=== PATIENT | male | born 1995 | race Caucasian/White ===

== ENCOUNTER 2024-02-21 12:10 | Inpatient (IN) | payer MEDICAID ==
[~2024-02-21] VITALS: Ht 182.9 cm; Wt 46.3 kg
[2024-02-21 21:30] VITALS: BP 95/65; TEMP 98.8; O2SAT 100
[2024-02-22] MEDS ORDERED: Z GUARD REMEDY 4 OZ OINT TP PRN
[2024-02-22] MEDS ORDERED: MAG HYDROX/AL HYDROX/SIMETH 30 ML UDC PO PRN
[2024-02-22] MEDS ORDERED: LEVALBUTEROL HCL NEB 1.25 MG/0.5 ML VIAL.NEB NEB PRN
[2024-02-22] MEDS ORDERED: MAGNESIUM HYDROXIDE 30 ML UDC PO PRN
[2024-02-22] MEDS: VANCOMYCIN 1 GM /D5W 250 ML PB IV ONE (01:34)
[2024-02-22] MEDS: VANCOMYCIN 1 GM in IV NS 0.9% 250 ML IV ONE (01:40)
[2024-02-22 06:30] LABS: BASOPHILS # (AUTO) 0.1 K/uL (0.0-0.2); BASOPHILS % (AUTO) 0.7 % (0.0-2.0); EOSINOPHILS % (AUTO) 0.3 % (0.0-6.0); HEMATOCRIT 32 % (39-51); HEMOGLOBIN 10.6 g/dL (13.5-17.5); LYMPHOCYTES # (AUTO) 1.3 K/uL (0.8-4.8); LYMPHOCYTES % (AUTO) 8.6 % (20.0-44.0); MEAN CORPUSCULAR HEMOGLOBIN 25 PG (26.0-33.0); MEAN CORPUSCULAR HGB CONC 33 g/dl (31.0-36.0); MEAN CORPUSCULAR VOLUME 76 fL (80-96); MONOCYTES # (AUTO) 1.2 K/uL (0.1-1.30); MONOCYTES % (AUTO) 8.1 % (2.0-12.0); NEUTROPHILS # (AUTO) 12.2 K/uL (1.8-8.9); NEUTROPHILS % (AUTO) 82.3 % (43.0-81.0); PLATELET COUNT (AUTO) 576 K/uL (150-450); RED BLOOD CELL COUNT(AUTO) 4.26 MIL/uL (4.5-6.0); RED CELL DISTRIBUTION WIDTH 14.9 % (11.5-15.0); WHITE BLOOD COUNT (AUTO) 14.8 K/uL (4.3-11.0)
[2024-02-22 06:57] LABS: ALBUMIN 1.9 g/dL (3.4-5.0); BILIRUBIN,DIRECT 0.2 mg/dL (0.0-0.2); BILIRUBIN,TOTAL 0.8 mg/dL (0.2-1.0); CREATININE 0.7 mg/dL (0.6-1.3); MAGNESIUM 2.2 mg/dL (1.8-2.4); PHOSPHORUS 3.9 mg/dL (2.5-4.9); POTASSIUM 4.1 mmol/L (3.5-5.1); TOTAL PROTEIN, SERUM 7.3 g/dL (6.4-8.2)
[2024-02-22 07:07] LABS: THYROID STIMULATING HORMONE 4.28 uIU/mL (0.358-3.74)
[2024-02-22] MEDS ORDERED: ALBUTEROL FS 2.5 MG/0.5 ML VIAL.NEB NEB PRN (07:30)
[2024-02-22] MEDS: LEVOTHYROXINE SODIUM 25 MCG TABLET PO SCH (07:51)
[2024-02-22] MEDS: PANTOPRAZOLE 40 MG TABLET.DR PO SCH (07:52)
[2024-02-22] MEDS: ENOXAPARIN SODIUM 40 MG/0.4 ML DISP.SYRIN SQ SCH (07:53)
[2024-02-22 08:00] VITALS: BP 103/74; TEMP 99.3; O2SAT 100
[2024-02-22] MEDS: VANCOMYCIN 1 GM in IV D5W 250 ML IV SCH (09:11)
[2024-02-22] MEDS: LEVOFLOXACIN 500 MG /D5W 100ML 500 MG in PREMIX 1 EA IV SCH (09:43)
[2024-02-22 09:50] LABS: IRON, SERUM 18 ug/dl (50-175); TOTAL IRON BINDING CAPACITY 160 ug/dl (250-450)
[2024-02-22 10:04] LABS: FERRITIN 904 ng/mL (8-388)
[2024-02-22] MEDS ORDERED: METRONIDAZOLE 500MG/ NS 100ML 500 MG in PREMIX 1 EA IV SCH (11:00)
[2024-02-22 16:00] VITALS: BP 119/96; TEMP 100.9; O2SAT 94
[2024-02-22] MEDS: ACETAMINOPHEN 325 MG TABLET PO PRN (16:38)
[2024-02-22 20:00] VITALS: BP 94/96; TEMP 97.7; O2SAT 99
[2024-02-22 20:51] VITALS: BP 94/69; TEMP 97.7; O2SAT 99
[2024-02-23 08:00] VITALS: BP 104/74; TEMP 98.1; O2SAT 93
[2024-02-23 08:10] LABS: CALCIUM, SERUM 8.2 mg/dL (8.5-10.1); CREATININE 0.7 mg/dL (0.6-1.3); POTASSIUM 3.9 mmol/L (3.5-5.1)
[2024-02-23] MEDS: CEFTRIAXONE 1 G in IV D5W 50 ML IV SCH (08:12)
[2024-02-23] MEDS: DOXYCYCLINE HYCLATE (100 MG) 100 MG TABLET PO SCH (08:13)
[2024-02-23] MEDS: VANCOMYCIN 750 MG in IV D5W 250 ML IV SCH (10:44)
[2024-02-23 15:07] LABS: *SPE A/G RATIO 0.5 (0.7-1.7); *SPE ALBUMIN 2.2 g/dL (2.9-4.4); *SPE ALPHA-1-GLOBULIN 0.5 g/dL (0.0-0.4); *SPE ALPHA-2-GLOBULIN 1.3 g/dL (0.4-1.0); *SPE GLOBULIN, TOTAL 4.2 g/dL (2.2-3.9); *SPE M-SPIKE Not Observed g/dL (Not Observed); *SPE PROTEIN TOTAL 6.4 g/dL (6.0-8.5); *SPEGAMMA GLOBULIN 1.5 g/dL (0.4-1.8)
[2024-02-23 16:00] VITALS: BP 92/58; TEMP 98.1; O2SAT 99
[2024-02-23 20:00] VITALS: BP 101/65; TEMP 97.7; O2SAT 100
[2024-02-24 08:00] VITALS: BP 94/58; TEMP 98.5; O2SAT 97
[2024-02-24 09:55] LABS: BASOPHILS # (AUTO) 0.1 K/uL (0.0-0.2); BASOPHILS % (AUTO) 0.7 % (0.0-2.0); EOSINOPHILS % (AUTO) 0.2 % (0.0-6.0); HEMATOCRIT 27 % (39-51); HEMOGLOBIN 8.9 g/dL (13.5-17.5); LYMPHOCYTES % (AUTO) 7.1 % (20.0-44.0); MEAN CORPUSCULAR HEMOGLOBIN 25 PG (26.0-33.0); MEAN CORPUSCULAR HGB CONC 33 g/dl (31.0-36.0); MEAN CORPUSCULAR VOLUME 76 fL (80-96); MONOCYTES % (AUTO) 7.5 % (2.0-12.0); NEUTROPHILS # (AUTO) 11.5 K/uL (1.8-8.9); NEUTROPHILS % (AUTO) 84.5 % (43.0-81.0); PLATELET COUNT (AUTO) 520 K/uL (150-450); RED BLOOD CELL COUNT(AUTO) 3.49 MIL/uL (4.5-6.0); RED CELL DISTRIBUTION WIDTH 15.6 % (11.5-15.0); WHITE BLOOD COUNT (AUTO) 13.6 K/uL (4.3-11.0)
[2024-02-24 10:28] LABS: ALBUMIN 1.8 g/dL (3.4-5.0); BILIRUBIN,TOTAL 0.5 mg/dL (0.2-1.0); C-REACTIVE PROTEIN 12.87 mg/dL (0.0-0.30); CALCIUM, SERUM 8.6 mg/dL (8.5-10.1); CREATININE 0.8 mg/dL (0.6-1.3); MAGNESIUM 2.2 mg/dL (1.8-2.4); PHOSPHORUS 3.9 mg/dL (2.5-4.9); POTASSIUM 3.7 mmol/L (3.5-5.1)
[2024-02-24] MEDS: SOD FERRIC GLUC 125 MG in IV NS 0.9% 100 ML IV SCH (15:23)
[2024-02-24] MEDS: VANCOMYCIN 500 MG in IV D5W 100ml IV SCH (17:37)
[2024-02-24 20:00] VITALS: TEMP 100; O2SAT 100
[2024-02-25 05:30] VITALS: TEMP 99.5
[2024-02-25 06:19] VITALS: TEMP 98.7
[2024-02-25 07:13] LABS: BASOPHILS % (AUTO) 0.3 % (0.0-2.0); EOSINOPHILS % (AUTO) 0.2 % (0.0-6.0); HEMATOCRIT 28 % (39-51); HEMOGLOBIN 9.3 g/dL (13.5-17.5); LYMPHOCYTES # (AUTO) 0.7 K/uL (0.8-4.8); LYMPHOCYTES % (AUTO) 5.3 % (20.0-44.0); MEAN CORPUSCULAR HEMOGLOBIN 25 PG (26.0-33.0); MEAN CORPUSCULAR HGB CONC 33 g/dl (31.0-36.0); MEAN CORPUSCULAR VOLUME 76 fL (80-96); MONOCYTES # (AUTO) 1.1 K/uL (0.1-1.30); MONOCYTES % (AUTO) 8.4 % (2.0-12.0); NEUTROPHILS # (AUTO) 11.4 K/uL (1.8-8.9); NEUTROPHILS % (AUTO) 85.8 % (43.0-81.0); PLATELET COUNT (AUTO) 477 K/uL (150-450); RED BLOOD CELL COUNT(AUTO) 3.71 MIL/uL (4.5-6.0); RED CELL DISTRIBUTION WIDTH 15.2 % (11.5-15.0); WHITE BLOOD COUNT (AUTO) 13.3 K/uL (4.3-11.0)
[2024-02-25 07:27] LABS: ALBUMIN 1.8 g/dL (3.4-5.0); BILIRUBIN,TOTAL 0.5 mg/dL (0.2-1.0); CALCIUM, SERUM 8.4 mg/dL (8.5-10.1); CREATININE 0.8 mg/dL (0.6-1.3); MAGNESIUM 1.9 mg/dL (1.8-2.4); PHOSPHORUS 3.9 mg/dL (2.5-4.9); POTASSIUM 3.6 mmol/L (3.5-5.1); TOTAL PROTEIN, SERUM 7.1 g/dL (6.4-8.2)
[2024-02-25 07:30] VITALS: BP 98/62; TEMP 100.8; O2SAT 97
[2024-02-25 08:25] VITALS: BP 90/58; TEMP 97.7; O2SAT 100
[2024-02-25] MEDS: ENSURE CLEAR 237 ML LIQUID (MIX BERRY) PO SCH (13:03)
[2024-02-25 16:18] VITALS: BP 114/72; TEMP 99.7; O2SAT 100
[2024-02-26 07:22] LABS: BASOPHILS # (AUTO) 0.1 K/uL (0.0-0.2); BASOPHILS % (AUTO) 0.4 % (0.0-2.0); EOSINOPHILS # (AUTO) 0.1 K/uL (0.0-0.7); EOSINOPHILS % (AUTO) 0.6 % (0.0-6.0); HEMATOCRIT 29 % (39-51); HEMOGLOBIN 9.7 g/dL (13.5-17.5); LYMPHOCYTES # (AUTO) 0.5 K/uL (0.8-4.8); LYMPHOCYTES % (AUTO) 3.5 % (20.0-44.0); MEAN CORPUSCULAR HEMOGLOBIN 26 PG (26.0-33.0); MEAN CORPUSCULAR HGB CONC 34 g/dl (31.0-36.0); MEAN CORPUSCULAR VOLUME 76 fL (80-96); MONOCYTES % (AUTO) 7.5 % (2.0-12.0); NEUTROPHILS # (AUTO) 11.9 K/uL (1.8-8.9); PLATELET COUNT (AUTO) 498 K/uL (150-450); RED BLOOD CELL COUNT(AUTO) 3.82 MIL/uL (4.5-6.0); RED CELL DISTRIBUTION WIDTH 15.2 % (11.5-15.0); WHITE BLOOD COUNT (AUTO) 13.5 K/uL (4.3-11.0)
[2024-02-26 07:35] LABS: ALBUMIN 1.7 g/dL (3.4-5.0); BILIRUBIN,TOTAL 0.6 mg/dL (0.2-1.0); CALCIUM, SERUM 8.6 mg/dL (8.5-10.1); CREATININE 0.7 mg/dL (0.6-1.3); MAGNESIUM 2.1 mg/dL (1.8-2.4); PHOSPHORUS 3.9 mg/dL (2.5-4.9); POTASSIUM 3.7 mmol/L (3.5-5.1); TOTAL PROTEIN, SERUM 6.9 g/dL (6.4-8.2)
[2024-02-26 08:00] VITALS: BP 98/62; TEMP 102.9; O2SAT 100
[2024-02-26 10:11] VITALS: TEMP 97.7; O2SAT 97
[2024-02-26 16:06] VITALS: BP 98/67; TEMP 98.6; O2SAT 100
[2024-02-26 20:00] VITALS: BP 97/60; TEMP 99.1; O2SAT 99
[2024-02-26 20:09] LABS: *MYCOPLASMA PNEUMONIAE IgG 227 U/mL (0-99); *MYCOPLASMA PNEUMONIAE IgM <770 U/mL (0-769)
[2024-02-27 07:16] LABS: BASOPHILS # (AUTO) 0.1 K/uL (0.0-0.2); BASOPHILS % (AUTO) 0.7 % (0.0-2.0); EOSINOPHILS % (AUTO) 0.3 % (0.0-6.0); HEMATOCRIT 28 % (39-51); HEMOGLOBIN 9.3 g/dL (13.5-17.5); LYMPHOCYTES # (AUTO) 0.5 K/uL (0.8-4.8); LYMPHOCYTES % (AUTO) 3.8 % (20.0-44.0); MEAN CORPUSCULAR HEMOGLOBIN 25 PG (26.0-33.0); MEAN CORPUSCULAR HGB CONC 33 g/dl (31.0-36.0); MEAN CORPUSCULAR VOLUME 76 fL (80-96); MONOCYTES # (AUTO) 1.1 K/uL (0.1-1.30); MONOCYTES % (AUTO) 7.9 % (2.0-12.0); NEUTROPHILS # (AUTO) 12.3 K/uL (1.8-8.9); NEUTROPHILS % (AUTO) 87.3 % (43.0-81.0); PLATELET COUNT (AUTO) 511 K/uL (150-450); RED BLOOD CELL COUNT(AUTO) 3.68 MIL/uL (4.5-6.0); RED CELL DISTRIBUTION WIDTH 15.1 % (11.5-15.0)
[2024-02-27 07:37] LABS: CALCIUM, SERUM 8.3 mg/dL (8.5-10.1); CREATININE 0.6 mg/dL (0.6-1.3); PHOSPHORUS 3.7 mg/dL (2.5-4.9); POTASSIUM 4.1 mmol/L (3.5-5.1)
[2024-02-27 08:00] VITALS: BP 94/68; TEMP 102.2; O2SAT 99
[2024-02-27 15:10] LABS: HIV-1 p24 ANTIGEN NON REACTIVE (NONREACTIVE); HIV-1/2 ANTIBODY NON REACTIVE (NONREACTIVE)
[2024-02-27] MEDS: ENSURE ENLIVE 237 ML LIQUID (VANILLA) PO SCH (17:15)
[2024-02-27 20:00] VITALS: BP 95/69; TEMP 98.4; O2SAT 100
[2024-02-27 21:31] VITALS: BP 95/69; TEMP 98.4; O2SAT 100
[2024-02-28] MEDS: VANCOMYCIN 1 GM in IV D5W 250ml IV SCH (01:35)
[2024-02-28 06:41] LABS: BASOPHILS # (AUTO) 0.1 K/uL (0.0-0.2); BASOPHILS % (AUTO) 0.5 % (0.0-2.0); EOSINOPHILS % (AUTO) 0.1 % (0.0-6.0); HEMATOCRIT 28 % (39-51); LYMPHOCYTES # (AUTO) 0.6 K/uL (0.8-4.8); LYMPHOCYTES % (AUTO) 4.1 % (20.0-44.0); MEAN CORPUSCULAR HEMOGLOBIN 25 PG (26.0-33.0); MEAN CORPUSCULAR HGB CONC 32 g/dl (31.0-36.0); MEAN CORPUSCULAR VOLUME 77 fL (80-96); MONOCYTES % (AUTO) 6.7 % (2.0-12.0); NEUTROPHILS # (AUTO) 12.8 K/uL (1.8-8.9); NEUTROPHILS % (AUTO) 88.6 % (43.0-81.0); PLATELET COUNT (AUTO) 481 K/uL (150-450); RED BLOOD CELL COUNT(AUTO) 3.66 MIL/uL (4.5-6.0); RED CELL DISTRIBUTION WIDTH 15.4 % (11.5-15.0); WHITE BLOOD COUNT (AUTO) 14.4 K/uL (4.3-11.0)
[2024-02-28 07:00] VITALS: BP 99/63; TEMP 100.6; O2SAT 93
[2024-02-28 07:09] LABS: CALCIUM, SERUM 8.3 mg/dL (8.5-10.1); CREATININE 0.7 mg/dL (0.6-1.3); PHOSPHORUS 2.8 mg/dL (2.5-4.9)
[2024-02-28 16:00] VITALS: BP 92/64; TEMP 98.2; O2SAT 98
[2024-02-28 20:00] VITALS: BP 110/69; TEMP 102.7; O2SAT 100
[2024-02-28 20:06] VITALS: BP 110/69; TEMP 102.7; O2SAT 100
[2024-02-29] VITALS: BP 110/70; TEMP 98.2; O2SAT 100
[2024-02-29 06:44] LABS: BASOPHILS # (AUTO) 0.1 K/uL (0.0-0.2); BASOPHILS % (AUTO) 0.5 % (0.0-2.0); EOSINOPHILS # (AUTO) 0.1 K/uL (0.0-0.7); EOSINOPHILS % (AUTO) 0.4 % (0.0-6.0); HEMATOCRIT 28 % (39-51); HEMOGLOBIN 9.6 g/dL (13.5-17.5); LYMPHOCYTES # (AUTO) 0.5 K/uL (0.8-4.8); LYMPHOCYTES % (AUTO) 4.1 % (20.0-44.0); MEAN CORPUSCULAR HEMOGLOBIN 26 PG (26.0-33.0); MEAN CORPUSCULAR HGB CONC 34 g/dl (31.0-36.0); MEAN CORPUSCULAR VOLUME 76 fL (80-96); MONOCYTES # (AUTO) 1.2 K/uL (0.1-1.30); MONOCYTES % (AUTO) 8.5 % (2.0-12.0); NEUTROPHILS # (AUTO) 11.7 K/uL (1.8-8.9); NEUTROPHILS % (AUTO) 86.5 % (43.0-81.0); PLATELET COUNT (AUTO) 485 K/uL (150-450); RED BLOOD CELL COUNT(AUTO) 3.68 MIL/uL (4.5-6.0); RED CELL DISTRIBUTION WIDTH 15.4 % (11.5-15.0); WHITE BLOOD COUNT (AUTO) 13.5 K/uL (4.3-11.0)
[2024-02-29 07:52] LABS: CALCIUM, SERUM 8.5 mg/dL (8.5-10.1); CREATININE 0.7 mg/dL (0.6-1.3); MAGNESIUM 2.2 mg/dL (1.8-2.4); PHOSPHORUS 3.5 mg/dL (2.5-4.9)
[2024-02-29 08:00] VITALS: BP 103/68; TEMP 98.4; O2SAT 99
[2024-02-29] MEDS: FLUCONAZOLE IN NS 100 MG in PREMIX 1 EA IV SCH (15:12)
[2024-02-29 17:00] VITALS: O2SAT 99
[2024-02-29 20:04] VITALS: BP 103/66; TEMP 102.9; O2SAT 98
[2024-02-29 20:06] LABS: *HIV-1 RNA BY PCR <20 copies/mL (.)
[2024-02-29] MEDS: ONDANSETRON HCL/PF 4 MG/2 ML VIAL IVP PRN (20:43)
[2024-03-01 05:00] VITALS: TEMP 99.1
[2024-03-01 06:48] LABS: BASOPHILS # (AUTO) 0.1 K/uL (0.0-0.2); BASOPHILS % (AUTO) 0.4 % (0.0-2.0); EOSINOPHILS # (AUTO) 0.1 K/uL (0.0-0.7); EOSINOPHILS % (AUTO) 0.5 % (0.0-6.0); HEMATOCRIT 30 % (39-51); HEMOGLOBIN 9.8 g/dL (13.5-17.5); LYMPHOCYTES # (AUTO) 1.3 K/uL (0.8-4.8); LYMPHOCYTES % (AUTO) 8.1 % (20.0-44.0); MEAN CORPUSCULAR HEMOGLOBIN 25 PG (26.0-33.0); MEAN CORPUSCULAR HGB CONC 33 g/dl (31.0-36.0); MEAN CORPUSCULAR VOLUME 77 fL (80-96); MONOCYTES # (AUTO) 1.5 K/uL (0.1-1.30); MONOCYTES % (AUTO) 9.4 % (2.0-12.0); NEUTROPHILS # (AUTO) 13.2 K/uL (1.8-8.9); NEUTROPHILS % (AUTO) 81.6 % (43.0-81.0); PLATELET COUNT (AUTO) 569 K/uL (150-450); RED BLOOD CELL COUNT(AUTO) 3.92 MIL/uL (4.5-6.0); RED CELL DISTRIBUTION WIDTH 15.6 % (11.5-15.0); WHITE BLOOD COUNT (AUTO) 16.2 K/uL (4.3-11.0)
[2024-03-01 07:05] LABS: CALCIUM, SERUM 8.7 mg/dL (8.5-10.1); CREATININE 0.9 mg/dL (0.6-1.3); MAGNESIUM 2.1 mg/dL (1.8-2.4); PHOSPHORUS 3.9 mg/dL (2.5-4.9); POTASSIUM 4.3 mmol/L (3.5-5.1)
[2024-03-01 07:30] VITALS: BP 105/68; TEMP 102.6; O2SAT 97
[2024-03-01 13:00] VITALS: TEMP 98.6; O2SAT 100
[2024-03-01 16:00] VITALS: BP 96/58; TEMP 99.7; O2SAT 98
[2024-03-01] MEDS ORDERED: PYRAZINAMIDE 500 MG TABLET PO SCH (18:00)
[2024-03-01] MEDS ORDERED: ETHAMBUTOL HCL (400 MG) 400 MG TABLET PO SCH (18:00)
[2024-03-01 20:00] VITALS: BP 96/78; TEMP 100; O2SAT 98
[2024-03-01] MEDS: ISONIAZID (300 MG) 300 MG TABLET PO SCH (20:21)
[2024-03-01] MEDS: ETHAMBUTOL HCL (400 MG) 400 MG TABLET PO SCH (20:22)
[2024-03-01] MEDS: PYRAZINAMIDE 500 MG TABLET PO SCH (20:22)
[2024-03-01] MEDS: RIFAMPIN 300 MG CAPSULE PO SCH (20:23)
[2024-03-02 08:00] VITALS: BP 90/58; TEMP 99.4; O2SAT 97
[2024-03-02 16:00] VITALS: BP 94/60; TEMP 99.7; O2SAT 96
[2024-03-02 16:15] LABS: BASOPHILS # (AUTO) 0.1 K/uL (0.0-0.2); BASOPHILS % (AUTO) 0.4 % (0.0-2.0); EOSINOPHILS # (AUTO) 0.1 K/uL (0.0-0.7); EOSINOPHILS % (AUTO) 0.5 % (0.0-6.0); HEMATOCRIT 27 % (39-51); LYMPHOCYTES # (AUTO) 0.6 K/uL (0.8-4.8); LYMPHOCYTES % (AUTO) 4.6 % (20.0-44.0); MEAN CORPUSCULAR HEMOGLOBIN 25 PG (26.0-33.0); MEAN CORPUSCULAR HGB CONC 33 g/dl (31.0-36.0); MEAN CORPUSCULAR VOLUME 76 fL (80-96); MONOCYTES # (AUTO) 1.4 K/uL (0.1-1.30); MONOCYTES % (AUTO) 10.8 % (2.0-12.0); NEUTROPHILS # (AUTO) 10.7 K/uL (1.8-8.9); NEUTROPHILS % (AUTO) 83.7 % (43.0-81.0); PLATELET COUNT (AUTO) 481 K/uL (150-450); RED CELL DISTRIBUTION WIDTH 16.2 % (11.5-15.0); WHITE BLOOD COUNT (AUTO) 12.8 K/uL (4.3-11.0)
[2024-03-02 16:29] LABS: CALCIUM, SERUM 8.3 mg/dL (8.5-10.1); CREATININE 0.7 mg/dL (0.6-1.3); MAGNESIUM 2.1 mg/dL (1.8-2.4); POTASSIUM 4.3 mmol/L (3.5-5.1)
[2024-03-02 16:39] VITALS: O2SAT 96
[2024-03-02 20:00] VITALS: BP 101/62; TEMP 102.7; O2SAT 96
[2024-03-02 21:30] VITALS: TEMP 99.3
[2024-03-03] MEDS: IV NS 0.9% 1,000 ML IV PRN (00:16)
[2024-03-03] MEDS ORDERED: IV NS 0.9% 1,000 ML BAG IV PRN ×2 (00:30)
[2024-03-03 07:40] LABS: BASOPHILS # (AUTO) 0.1 K/uL (0.0-0.2); BASOPHILS % (AUTO) 0.4 % (0.0-2.0); EOSINOPHILS # (AUTO) 0.1 K/uL (0.0-0.7); EOSINOPHILS % (AUTO) 0.4 % (0.0-6.0); HEMATOCRIT 27 % (39-51); LYMPHOCYTES # (AUTO) 0.9 K/uL (0.8-4.8); LYMPHOCYTES % (AUTO) 5.2 % (20.0-44.0); MEAN CORPUSCULAR HEMOGLOBIN 26 PG (26.0-33.0); MEAN CORPUSCULAR HGB CONC 33 g/dl (31.0-36.0); MEAN CORPUSCULAR VOLUME 77 fL (80-96); MONOCYTES # (AUTO) 1.6 K/uL (0.1-1.30); MONOCYTES % (AUTO) 8.8 % (2.0-12.0); NEUTROPHILS # (AUTO) 15.6 K/uL (1.8-8.9); NEUTROPHILS % (AUTO) 85.2 % (43.0-81.0); PLATELET COUNT (AUTO) 496 K/uL (150-450); RED BLOOD CELL COUNT(AUTO) 3.51 MIL/uL (4.5-6.0); RED CELL DISTRIBUTION WIDTH 15.9 % (11.5-15.0); WHITE BLOOD COUNT (AUTO) 18.3 K/uL (4.3-11.0)
[2024-03-03 08:08] LABS: ALBUMIN 1.8 g/dL (3.4-5.0); BILIRUBIN,TOTAL 1.3 mg/dL (0.2-1.0); CALCIUM, SERUM 8.5 mg/dL (8.5-10.1); CREATININE 0.8 mg/dL (0.6-1.3); MAGNESIUM 2.3 mg/dL (1.8-2.4); TOTAL PROTEIN, SERUM 7.2 g/dL (6.4-8.2)
[2024-03-03 08:23] VITALS: BP 100/59; TEMP 99.1; O2SAT 96
[2024-03-03 09:14] VITALS: O2SAT 97
[2024-03-03 15:58] VITALS: BP 94/57; TEMP 98.6; O2SAT 97
[2024-03-03 20:00] VITALS: BP 103/69; TEMP 99.9; O2SAT 94
[2024-03-04 07:44] VITALS: O2SAT 96
[2024-03-04 07:48] LABS: BASOPHILS # (AUTO) 0.1 K/uL (0.0-0.2); BASOPHILS % (AUTO) 0.9 % (0.0-2.0); EOSINOPHILS # (AUTO) 0.1 K/uL (0.0-0.7); EOSINOPHILS % (AUTO) 0.6 % (0.0-6.0); HEMATOCRIT 28 % (39-51); HEMOGLOBIN 8.8 g/dL (13.5-17.5); LYMPHOCYTES # (AUTO) 0.8 K/uL (0.8-4.8); LYMPHOCYTES % (AUTO) 5.8 % (20.0-44.0); MEAN CORPUSCULAR HEMOGLOBIN 25 PG (26.0-33.0); MEAN CORPUSCULAR HGB CONC 32 g/dl (31.0-36.0); MEAN CORPUSCULAR VOLUME 78 fL (80-96); MONOCYTES # (AUTO) 0.9 K/uL (0.1-1.30); MONOCYTES % (AUTO) 6.5 % (2.0-12.0); NEUTROPHILS % (AUTO) 86.2 % (43.0-81.0); PLATELET COUNT (AUTO) 486 K/uL (150-450); RED BLOOD CELL COUNT(AUTO) 3.53 MIL/uL (4.5-6.0); RED CELL DISTRIBUTION WIDTH 16.7 % (11.5-15.0); WHITE BLOOD COUNT (AUTO) 13.9 K/uL (4.3-11.0)
[2024-03-04 08:12] LABS: CALCIUM, SERUM 8.8 mg/dL (8.5-10.1); CREATININE 0.7 mg/dL (0.6-1.3); MAGNESIUM 2.4 mg/dL (1.8-2.4); PHOSPHORUS 3.9 mg/dL (2.5-4.9); POTASSIUM 3.9 mmol/L (3.5-5.1)
[2024-03-04 08:28] VITALS: BP 102/56; TEMP 99.3; O2SAT 96
[2024-03-04 08:40] VITALS: BP 116/70; TEMP 100.8; O2SAT 99
[2024-03-04] MEDS: ENSURE ENLIVE 237 ML LIQUID (VANILLA) PO SCH (08:49)
[2024-03-04] MEDS: ENSURE ENLIVE CHOC 237 ML CAN PO SCH (09:56)
[2024-03-04 16:13] VITALS: BP 96/62; TEMP 99.1; O2SAT 95
[2024-03-04 20:00] VITALS: BP 116/70; TEMP 100.8; O2SAT 99
[2024-03-05] MEDS: ALBUTEROL HALF STRENGTH 1.25 MG/3 ML VIAL.NEB NEB PRN (05:25)
[2024-03-05 06:35] LABS: BASOPHILS # (AUTO) 0.1 K/uL (0.0-0.2); BASOPHILS % (AUTO) 0.6 % (0.0-2.0); EOSINOPHILS # (AUTO) 0.1 K/uL (0.0-0.7); HEMATOCRIT 28 % (39-51); HEMOGLOBIN 9.2 g/dL (13.5-17.5); LYMPHOCYTES # (AUTO) 0.9 K/uL (0.8-4.8); LYMPHOCYTES % (AUTO) 8.5 % (20.0-44.0); MEAN CORPUSCULAR HEMOGLOBIN 26 PG (26.0-33.0); MEAN CORPUSCULAR HGB CONC 33 g/dl (31.0-36.0); MEAN CORPUSCULAR VOLUME 77 fL (80-96); MONOCYTES % (AUTO) 9.4 % (2.0-12.0); NEUTROPHILS # (AUTO) 8.5 K/uL (1.8-8.9); NEUTROPHILS % (AUTO) 80.5 % (43.0-81.0); PLATELET COUNT (AUTO) 501 K/uL (150-450); RED BLOOD CELL COUNT(AUTO) 3.59 MIL/uL (4.5-6.0); RED CELL DISTRIBUTION WIDTH 16.8 % (11.5-15.0); WHITE BLOOD COUNT (AUTO) 10.5 K/uL (4.3-11.0)
[2024-03-05 07:15] LABS: CALCIUM, SERUM 8.3 mg/dL (8.5-10.1); CREATININE 0.6 mg/dL (0.6-1.3); MAGNESIUM 2.4 mg/dL (1.8-2.4); PHOSPHORUS 3.9 mg/dL (2.5-4.9); POTASSIUM 3.9 mmol/L (3.5-5.1)
[2024-03-05 07:55] VITALS: BP 104/73; TEMP 98.8; O2SAT 100
[2024-03-05 08:00] VITALS: BP 96/63; TEMP 97.3; O2SAT 98
[2024-03-05 16:00] VITALS: BP 100/63; TEMP 98.3; O2SAT 99
[2024-03-05 20:00] VITALS: BP 104/43; TEMP 98.8; O2SAT 100
[2024-03-06 06:53] LABS: BASOPHILS # (AUTO) 0.1 K/uL (0.0-0.2); BASOPHILS % (AUTO) 0.7 % (0.0-2.0); EOSINOPHILS # (AUTO) 0.1 K/uL (0.0-0.7); EOSINOPHILS % (AUTO) 0.7 % (0.0-6.0); HEMATOCRIT 26 % (39-51); HEMOGLOBIN 8.5 g/dL (13.5-17.5); LYMPHOCYTES # (AUTO) 0.7 K/uL (0.8-4.8); LYMPHOCYTES % (AUTO) 4.9 % (20.0-44.0); MEAN CORPUSCULAR HEMOGLOBIN 25 PG (26.0-33.0); MEAN CORPUSCULAR HGB CONC 33 g/dl (31.0-36.0); MEAN CORPUSCULAR VOLUME 77 fL (80-96); MONOCYTES # (AUTO) 1.1 K/uL (0.1-1.30); MONOCYTES % (AUTO) 7.9 % (2.0-12.0); NEUTROPHILS # (AUTO) 12.2 K/uL (1.8-8.9); NEUTROPHILS % (AUTO) 85.8 % (43.0-81.0); PLATELET COUNT (AUTO) 543 K/uL (150-450); RED CELL DISTRIBUTION WIDTH 16.8 % (11.5-15.0); WHITE BLOOD COUNT (AUTO) 14.2 K/uL (4.3-11.0)
[2024-03-06 07:00] VITALS: BP 98/62; TEMP 99; O2SAT 98
[2024-03-06 07:24] LABS: CALCIUM, SERUM 8.1 mg/dL (8.5-10.1); CREATININE 0.6 mg/dL (0.6-1.3); MAGNESIUM 2.1 mg/dL (1.8-2.4); PHOSPHORUS 3.2 mg/dL (2.5-4.9)
[2024-03-06 16:00] VITALS: BP 96/71; TEMP 98.1; O2SAT 100
[2024-03-06 20:00] VITALS: BP 107/71; TEMP 99.3; O2SAT 99
[2024-03-07 09:24] VITALS: BP 102/62; TEMP 97.9; O2SAT 95
[2024-03-07 16:00] VITALS: BP 100/66; TEMP 99; O2SAT 95
[2024-03-07 20:00] VITALS: BP 99/75; TEMP 99.1; O2SAT 95
[2024-03-08 08:00] VITALS: BP 104/70; TEMP 98.8; O2SAT 94
[2024-03-08] MEDS: PYRIDOXINE HCL 50 MG TABLET PO SCH (12:05)
[2024-03-08 16:00] VITALS: BP 95/62; TEMP 98.4; O2SAT 96
[2024-03-08 20:00] VITALS: BP 104/72; TEMP 101.8; O2SAT 97
[2024-03-08 22:00] VITALS: TEMP 98.8
[2024-03-09 05:13] VITALS: O2SAT 97
[2024-03-09 08:00] VITALS: BP 98/68; TEMP 98.8; O2SAT 98
[2024-03-09 13:00] LABS: ALBUMIN 1.8 g/dL (3.4-5.0); BILIRUBIN,DIRECT 0.2 mg/dL (0.0-0.2); BILIRUBIN,TOTAL 0.5 mg/dL (0.2-1.0); TOTAL PROTEIN, SERUM 7.3 g/dL (6.4-8.2)
[2024-03-09 16:00] VITALS: BP 100/63; TEMP 98.4; O2SAT 96
[2024-03-09 20:00] VITALS: BP 112/66; TEMP 98.6; O2SAT 98
[2024-03-09 20:22] VITALS: BP 112/66; TEMP 98.6; O2SAT 98
[2024-03-10 07:00] VITALS: BP 108/86; TEMP 97.9; O2SAT 97
[2024-03-10 08:15] VITALS: BP 104/72; TEMP 99; O2SAT 99
[2024-03-10 16:00] VITALS: BP 109/68; TEMP 98.8; O2SAT 100
[2024-03-11 08:00] VITALS: BP 113/79; TEMP 98.2; O2SAT 97
[2024-03-11 20:00] VITALS: BP 108/72; TEMP 99; O2SAT 100
[2024-03-11 20:09] LABS: BASOPHILS # (AUTO) 0.1 K/uL (0.0-0.2); EOSINOPHILS # (AUTO) 0.2 K/uL (0.0-0.7); EOSINOPHILS % (AUTO) 1.9 % (0.0-6.0); HEMATOCRIT 28 % (39-51); HEMOGLOBIN 9.2 g/dL (13.5-17.5); LYMPHOCYTES # (AUTO) 0.7 K/uL (0.8-4.8); LYMPHOCYTES % (AUTO) 6.6 % (20.0-44.0); MEAN CORPUSCULAR HEMOGLOBIN 27 PG (26.0-33.0); MEAN CORPUSCULAR HGB CONC 33 g/dl (31.0-36.0); MEAN CORPUSCULAR VOLUME 80 fL (80-96); MONOCYTES # (AUTO) 1.1 K/uL (0.1-1.30); MONOCYTES % (AUTO) 9.6 % (2.0-12.0); NEUTROPHILS # (AUTO) 8.9 K/uL (1.8-8.9); NEUTROPHILS % (AUTO) 80.9 % (43.0-81.0); PLATELET COUNT (AUTO) 550 K/uL (150-450); RED BLOOD CELL COUNT(AUTO) 3.44 MIL/uL (4.5-6.0); RED CELL DISTRIBUTION WIDTH 20.6 % (11.5-15.0); WHITE BLOOD COUNT (AUTO) 11.1 K/uL (4.3-11.0)
[2024-03-11 20:54] LABS: CALCIUM, SERUM 7.9 mg/dL (8.5-10.1); CREATININE 0.6 mg/dL (0.6-1.3); POTASSIUM 3.9 mmol/L (3.5-5.1)
[2024-03-11 20:55] LABS: ALBUMIN 1.8 g/dL (3.4-5.0); BILIRUBIN,DIRECT 0.3 mg/dL (0.0-0.2); BILIRUBIN,TOTAL 0.5 mg/dL (0.2-1.0)
[2024-03-12 08:00] VITALS: BP 104/74; TEMP 97.6; O2SAT 96
[2024-03-12 23:00] VITALS: BP 107/64; TEMP 99; O2SAT 96
[2024-03-13 20:49] VITALS: BP 112/78; TEMP 99; O2SAT 98
[2024-03-13] MEDS: LORAZEPAM 1 MG TABLET PO PRN (23:44)
[2024-03-14 08:00] VITALS: BP 97/69; TEMP 98.4; O2SAT 97
[2024-03-14 20:00] VITALS: BP 103/70; TEMP 98.6; O2SAT 97
[2024-03-15 11:39] LABS: BASOPHILS # (AUTO) 0.1 K/uL (0.0-0.2); BASOPHILS % (AUTO) 0.5 % (0.0-2.0); EOSINOPHILS # (AUTO) 0.1 K/uL (0.0-0.7); EOSINOPHILS % (AUTO) 0.5 % (0.0-6.0); HEMATOCRIT 32 % (39-51); HEMOGLOBIN 10.3 g/dL (13.5-17.5); LYMPHOCYTES # (AUTO) 0.6 K/uL (0.8-4.8); MEAN CORPUSCULAR HEMOGLOBIN 26 PG (26.0-33.0); MEAN CORPUSCULAR HGB CONC 32 g/dl (31.0-36.0); MEAN CORPUSCULAR VOLUME 81 fL (80-96); MONOCYTES % (AUTO) 8.3 % (2.0-12.0); NEUTROPHILS # (AUTO) 10.1 K/uL (1.8-8.9); NEUTROPHILS % (AUTO) 85.7 % (43.0-81.0); PLATELET COUNT (AUTO) 486 K/uL (150-450); RED BLOOD CELL COUNT(AUTO) 3.96 MIL/uL (4.5-6.0); RED CELL DISTRIBUTION WIDTH 21.6 % (11.5-15.0); WHITE BLOOD COUNT (AUTO) 11.7 K/uL (4.3-11.0)
[2024-03-15 11:55] LABS: BILIRUBIN,DIRECT 0.2 mg/dL (0.0-0.2); BILIRUBIN,TOTAL 0.6 mg/dL (0.2-1.0); CALCIUM, SERUM 8.6 mg/dL (8.5-10.1); CREATININE 0.8 mg/dL (0.6-1.3); POTASSIUM 3.9 mmol/L (3.5-5.1); TOTAL PROTEIN, SERUM 7.5 g/dL (6.4-8.2)
[2024-03-15 16:06] VITALS: BP 107/79; TEMP 98.2; O2SAT 98
[2024-03-15 20:20] VITALS: BP 106/74; TEMP 98.2; O2SAT 99
[2024-03-16 08:00] VITALS: BP 109/74; TEMP 98.1; O2SAT 98
[2024-03-16 16:00] VITALS: BP 104/75; TEMP 98.4; O2SAT 100
[2024-03-16 20:00] VITALS: BP 108/74; TEMP 97.3; O2SAT 99
[2024-03-17 08:53] VITALS: BP 108/80; TEMP 98.1; O2SAT 96
[2024-03-17 17:53] VITALS: BP 107/63; TEMP 98.2; O2SAT 98
[2024-03-17 20:27] VITALS: BP 117/80; TEMP 99.3; O2SAT 97
[2024-03-18 08:00] VITALS: BP 102/71; TEMP 97.7; O2SAT 100
[2024-03-18] MEDS ORDERED: PYRI-6 PO (10:52)
[2024-03-18] MEDS ORDERED: PYRA500T13 PO (10:52)
[2024-03-18] MEDS ORDERED: ETHA400T8 PO (10:52)
[2024-03-18] MEDS ORDERED: RIFA300C4 PO (10:52)
[2024-03-18] MEDS ORDERED: ISON300T27 PO (10:52)
[2024-03-18 11:07] LABS: COCCIDIOIDES Abs, IgG,EIA 0.2 EIA Units (.); COCCIDIOIDES Abs, IgM,EIA 0.2 EIA Units (.)
[2024-03-18] MEDS: SODIUM CL FOR INHALATION 3% 15 ML VIAL.NEB IH ONE (12:00)
[2024-03-18 12:17] LABS: BASOPHILS # (AUTO) 0.2 K/uL (0.0-0.2); BASOPHILS % (AUTO) 2.1 % (0.0-2.0); EOSINOPHILS # (AUTO) 0.2 K/uL (0.0-0.7); EOSINOPHILS % (AUTO) 2.4 % (0.0-6.0); HEMATOCRIT 32 % (39-51); HEMOGLOBIN 10.5 g/dL (13.5-17.5); LYMPHOCYTES # (AUTO) 0.8 K/uL (0.8-4.8); LYMPHOCYTES % (AUTO) 8.8 % (20.0-44.0); MEAN CORPUSCULAR HEMOGLOBIN 26 PG (26.0-33.0); MEAN CORPUSCULAR HGB CONC 33 g/dl (31.0-36.0); MEAN CORPUSCULAR VOLUME 81 fL (80-96); MONOCYTES # (AUTO) 0.9 K/uL (0.1-1.30); NEUTROPHILS # (AUTO) 6.7 K/uL (1.8-8.9); NEUTROPHILS % (AUTO) 76.7 % (43.0-81.0); PLATELET COUNT (AUTO) 422 K/uL (150-450); RED BLOOD CELL COUNT(AUTO) 4.01 MIL/uL (4.5-6.0); RED CELL DISTRIBUTION WIDTH 22.3 % (11.5-15.0); WHITE BLOOD COUNT (AUTO) 8.8 K/uL (4.3-11.0)
[2024-03-18 12:23] LABS: CALCIUM, SERUM 8.1 mg/dL (8.5-10.1); CREATININE 0.6 mg/dL (0.6-1.3); POTASSIUM 3.4 mmol/L (3.5-5.1)
[2024-03-18 12:29] LABS: ALBUMIN 1.9 g/dL (3.4-5.0); BILIRUBIN,DIRECT 0.2 mg/dL (0.0-0.2); BILIRUBIN,TOTAL 0.4 mg/dL (0.2-1.0); TOTAL PROTEIN, SERUM 7.1 g/dL (6.4-8.2)
[2024-03-18 20:00] VITALS: BP 106/75; TEMP 98.1; O2SAT 99
[2024-03-19 08:00] VITALS: BP 117/72; TEMP 98.8; O2SAT 96
[2024-03-19 16:00] VITALS: BP 102/70; TEMP 98.2; O2SAT 97
[2024-03-19 20:00] VITALS: BP 114/67; TEMP 98.6; O2SAT 98
[2024-03-19 20:16] VITALS: BP 114/67; TEMP 98.6; O2SAT 98
[2024-03-20 08:00] VITALS: BP 98/71; TEMP 98.2; O2SAT 97
[2024-03-20 16:00] VITALS: BP 118/72; TEMP 98.4; O2SAT 98
[2024-03-20 20:00] VITALS: BP 108/72; TEMP 98.6; O2SAT 97
[2024-03-20 20:18] VITALS: BP 108/72; TEMP 98.6; O2SAT 97
[2024-03-21 07:00] VITALS: BP 109/77; TEMP 98.6; O2SAT 98
== END 2024-03-21 14:30 | disposition home or self-care (01) | DRG 137 ==
LOC: MED 22:08
PROVIDERS: ADMIT Nurse Practitioner Family; ATTEND Internal Medicine
DX: A15.0 Tuberculosis of lung (principal); I31.39 Other pericardial effusion (noninflammatory); R64 Cachexia; E44.0 Moderate protein-calorie malnutrition; J15.9 Unspecified bacterial pneumonia; E87.1 Hypo-osmolality and hyponatremia; I47.10 Supraventricular tachycardia, unspecified; E86.0 Dehydration; J90 Pleural effusion, not elsewhere classified; E03.9 Hypothyroidism, unspecified; E87.6 Hypokalemia; F43.22 Adjustment disorder with anxiety; D50.9 Iron deficiency anemia, unspecified; Z68.1 Body mass index [BMI] 19.9 or less, adult; F32.A Depression, unspecified; E88.09 Other disorders of plasma-protein metabolism, not elsewhere classified
CPT/HCPCS: 36415; 36600; 71045-TC; 71250-TC; 80048-TC; 80053-TC; 80076-TC; 80202-TC; 82728-TC; 82803-TC; 83540-TC; 83615-TC; 83735-TC; 83880; 84100-TC; 84155; 84165; 84443-TC; 85025-TC; 85652-TC; 86140-TC; 86480; 86713; 86738; 86803; 87040-TC; 87081-TC; 87102-TC; 87206-TC; 87536; 87806; 87899; 93307-TC; 94640-TC; 94762-TC; 94799-TC; 97110-TC; 97116-TC; 97530-TC; A4216; A4218; A4223; G0378; J0696; J1450; J1650; J1956; J2405; J2916; J3370; J3371; J7030; J7040; J7050; J7060